=== PATIENT | male | born 1965 | race African-American/Black ===

== ENCOUNTER 2021-11-24 13:05 | Outpatient (CLI) | payer OTHER | END 2021-11-24 13:06 | disposition home or self-care (01) | LOC: CSHMRI 13:05 | PROVIDERS: ATTEND Family Medicine | DX: R41.3 Other amnesia (principal) | CPT/HCPCS: 70551 ==

== ENCOUNTER 2022-02-16 08:05 | Outpatient (CLI) | payer OTHER | END 2022-02-16 08:06 | disposition home or self-care (01) | LOC: CSHCT 08:05 | PROVIDERS: ATTEND Family Medicine | DX: D21.4 Benign neoplasm of connective and other soft tissue of abdomen (principal); Z98.890 Other specified postprocedural states | CPT/HCPCS: 74170 ==